=== PATIENT | female | born 1985 | race Caucasian/White ===

== ENCOUNTER 2017-03-10 20:55 | Emergency (ER) | payer SELFPAY ==
[~2017-03-10] VITALS: Ht 134.6 cm; Wt 65.8 kg
[~2017-03-10 20:55] MED LIST: IBUPROFEN; VICODIN; ZOFRAN4 M1 PO
[2017-03-10 21:00] VITALS: BP 120/67
--- NOTE | 2017-03-10 21:40 | NUR ---
Patient ambulated to bed 05.
--- NOTE | 2017-03-10 21:45 | NUR ---
Patient being evaluated by Dr. Murillo at bedside.
--- NOTE | 2017-03-10 21:48 | NUR ---
PT IS 31/F BIB SELF TO ED WITH C/O ABD PAIN, N/V/D X 1 WEEK. PT STATES MED HX OF GALL BLADDER REMOVAL. SKIN IS PINK/WARM/DRY; AAOX4 WITH EVEN AND STEADY GAIT; LUNGS CLEAR BL; HR EVEN AND REGULAR; PT DENIES ANY FEVER, CP, SOB, OR COUGH AT THIS TIME; PATIENT STATES PAIN OF 6/10 AT THIS TIME; VSS; PATIENT POSITIONED FOR COMFORT; HOB ELEVATED; BEDRAILS UP X2; BED DOWN. ER MD MADE AWARE OF PT STATUS.
[2017-03-10] MEDS ORDERED: DICYCLOMINE 20 MG/2 ML VIAL IM ONE (21:55)
[2017-03-10] MEDS ORDERED: ONDANSETRON 4 MG ODT PO ONE (21:55)
[2017-03-10 23:21] VITALS: BP 108/63
--- NOTE | 2017-03-10 23:21 | NUR ---
Patient discharged with v/s stable. Written and verbal after care instructions given and explained. Patient alert, oriented and verbalized understanding of instructions. Ambulatory with steady gait. All questions addressed prior to discharge. ID band removed. Patient advised to follow up with PMD. Rx of ZOFRAN ODT AND BENTYL given. Patient educated on indication of medication including possible reaction and side effects. Opportunity to ask questions provided and answered.
== END 2017-03-10 23:21 | disposition home or self-care (01) ==
LOC: MED 20:55
DX: R11.2 Nausea with vomiting, unspecified (principal); R19.7 Diarrhea, unspecified; Z88.8 Allergy status to other drugs, medicaments and biological substances; Z90.49 Acquired absence of other specified parts of digestive tract
CPT/HCPCS: 36415; 80053; 81001; 81002; 81025; 83690; 87086; 96372; 99284; J0500; S0119

== ENCOUNTER 2018-02-05 01:55 | Emergency (ER) | payer OTHER ==
[~2018-02-05] VITALS: Ht 134.6 cm; Wt 67.6 kg
[~2018-02-05 01:55] MED LIST changes: -ZOFRAN4 M1 PO
[2018-02-05 02:02] VITALS: BP 127/54
[2018-02-05] MEDS ORDERED: LORazepam 1 MG TAB PO ONE (03:00)
[2018-02-05 03:30] LABS: ANION GAP 14.5 (8-16); CARBON DIOXIDE 23.6 mmol/L (21-32); POTASSIUM 3.1 mmol/L (3.5-5.1)
[2018-02-05 03:31] LABS: CREATININE 0.6 mg/dL (0.6-1.3)
[2018-02-05] MEDS ORDERED: POTASSIUM CHLORIDE 10 MEQ TABER PO ONE (03:35)
[2018-02-05] MEDS ORDERED: KETOROLAC 30 MG/ML VIAL IM ONE (04:10)
[2018-02-05 04:25] VITALS: BP 120/60
== END 2018-02-05 04:25 | disposition home or self-care (01) ==
LOC: MED 01:55
DX: R20.2 Paresthesia of skin (principal); Z88.8 Allergy status to other drugs, medicaments and biological substances
CPT/HCPCS: 36415; 80048; 96372; 99283; J1885

== ENCOUNTER 2018-05-10 16:25 | Emergency (ER) | payer OTHER ==
[~2018-05-10] VITALS: Ht 134.6 cm; Wt 72.1 kg
[2018-05-10 16:36] VITALS: BP 126/53
--- NOTE | 2018-05-10 17:02 | NUR ---
PT AMBULATES TO BED 12
--- NOTE | 2018-05-10 17:10 | NUR ---
32y/f bib self with c/p intermittent ruq and rlq abdomen pain radiating to right lower back x 5 days with nausea and diarrhea. Patient denies any vomitting, urinary complaints, or fevers. DENIES N/V/D; SKIN IS PINK/WARM/DRY; AAOX4 WITH EVEN AND STEADY GAIT; PATIENT STATES PAIN OF 6/10 AT THIS TIME; VSS; PATIENT POSITIONED FOR COMFORT; HOB ELEVATED; BEDRAILS UP X1; BED DOWN. ER MD MADE AWARE OF PT STATUS.
[2018-05-10] MEDS ORDERED: ONDANSETRON 4 MG ODT PO ONE (17:35)
[2018-05-10] MEDS ORDERED: KETOROLAC 60 MG/2 ML VIAL IM ONE (17:35)
[2018-05-10 17:50] LABS: APPEARANCE,URINE CLEAR (CLEAR); BILIRUBIN,URINE NEGATIVE (NEGATIVE); BLOOD, URINE TRACE-I (NEGATIVE); COLOR,URINE YELLOW (YELLOW); LEUKOCYTE ESTERASE ,URINE 1+ (NEGATIVE); NITRITE, URINE NEGATIVE (NEGATIVE); PH,URINE 6.5 (5.0-9.0); UGLUCOSE NEGATIVE (NEGATIVE)
--- NOTE | 2018-05-10 17:54 | NUR ---
USLTRA SOUND AT BEDSIDE
[2018-05-10 18:00] LABS: RBC,URINE 0-5 (RARE) /HPF (0-5); WBC,URINE 0-5 (RARE) /HPF (0-5)
[2018-05-10 18:11] LABS: BASOPHILS # (AUTO) 0.1 K/uL (0.00-0.22); BASOPHILS % (AUTO) 1.1 % (0.0-2.0); EOSINOPHILS # (AUTO) 0.2 K/uL (0-0.4); EOSINOPHILS % (AUTO) 3.2 % (0.0-4.0); HEMATOCRIT 44.9 % (36-48); HEMOGLOBIN 14.9 g/dL (12.0-16.0); LYMPHOCYTES # (AUTO) 2.6 K/uL (2.5-16.5); LYMPHOCYTES % (AUTO) 38.5 % (20.5-51.1); MEAN CORPUSCULAR HEMOGLOBIN 30 pg (27-31); MEAN CORPUSCULAR HGB CONC 33 g/dL (33-37); MEAN CORPUSCULAR VOLUME 89.8 fL (80-94); MONOCYTES # (AUTO) 0.6 K/uL (0.8-1.0); NEUTROPHILS # (AUTO) 3.3 K/uL (1.8-7.7); NEUTROPHILS % (AUTO) 48.2 % (42.2-75.2); PLATELET COUNT (AUTO) 295 K/uL (140-450); RED CELL DISTRIBUTION WIDTH 13.3 % (11.6-13.7); WHITE BLOOD COUNT (AUTO) 6.8 K/uL (4.8-10.8)
[2018-05-10 18:44] LABS: ANION GAP 8.9 (8-16); CARBON DIOXIDE 27.5 mmol/L (21-32); CREATININE 0.6 mg/dL (0.6-1.3); POTASSIUM 3.4 mmol/L (3.5-5.1)
[2018-05-10 18:49] LABS: TOTAL BILIRUBIN 0.3 mg/dL (0.0-1.0)
--- NOTE | 2018-05-10 19:20 | NUR ---
Patient discharged with v/s stable. Written and verbal after care instructions given and explained. Patient alert, oriented and verbalized understanding of instructions. Ambulatory with steady gait. All questions addressed prior to discharge. ID band removed. Patient advised to follow up with PMD. Rx of zofran, naprosyn, and cephalexin given. Patient educated on indication of medication including possible reaction and side effects. Opportunity to ask questions provided and answered.
[2018-05-10 19:21] VITALS: BP 125/51
== END 2018-05-10 19:20 | disposition home or self-care (01) ==
LOC: MED 16:25
DX: N39.0 Urinary tract infection, site not specified (principal); R19.7 Diarrhea, unspecified; Z90.49 Acquired absence of other specified parts of digestive tract; Z88.8 Allergy status to other drugs, medicaments and biological substances
CPT/HCPCS: 36415; 76830; 80053; 81001; 81025; 85025; 87086; 93976; 96372; 99285; J1885; Q0092; S0119

== ENCOUNTER 2018-05-28 15:02 | Emergency (ER) | payer OTHER ==
[~2018-05-28] VITALS: Ht 134.6 cm; Wt 72.6 kg
[2018-05-28 15:37] VITALS: BP 120/84
--- NOTE | 2018-05-28 15:45 | NUR ---
33/F BIB FAMILY C/O RLQ abd pain radiating to back with N/V/Dx 1 day, denies dysuria. + chills, denies fever. PT STATED DIARRHEA X 6 EPISODES & VOMIT X 4 EPISODES TODAY. SKIN IS PINK/WARM/DRY; AAOX4 WITH EVEN AND STEADY GAIT; LUNGS CLEAR BL;7/10 AT THIS TIME; VSS; PATIENT POSITIONED FOR COMFORT; HOB ELEVATED; BEDRAILS UP X2; BED DOWN. ER MD MADE AWARE OF PT STATUS.
--- NOTE | 2018-05-28 16:22 | NUR ---
Patient being evaluated by DR RIVERA at bedside.
[2018-05-28] MEDS ORDERED: NACL 0.9% 1,000 ML IV SCH (16:23)
[2018-05-28] MEDS ORDERED: ONDANSETRON 4 MG/2 ML VIAL IVP ONE (16:25)
[2018-05-28] MEDS ORDERED: KETOROLAC 30 MG/ML VIAL IVP ONE (16:25)
[2018-05-28 17:09] LABS: APPEARANCE,URINE CLEAR (CLEAR); BILIRUBIN,URINE 1+ (NEGATIVE); BLOOD, URINE NEGATIVE (NEGATIVE); COLOR,URINE YELLOW (YELLOW); LEUKOCYTE ESTERASE ,URINE NEGATIVE (NEGATIVE); NITRITE, URINE NEGATIVE (NEGATIVE); UGLUCOSE NEGATIVE (NEGATIVE)
[2018-05-28 17:13] LABS: BASOPHILS # (AUTO) 0.1 K/uL (0.00-0.22); BASOPHILS % (AUTO) 0.9 % (0.0-2.0); EOSINOPHILS # (AUTO) 0.1 K/uL (0-0.4); EOSINOPHILS % (AUTO) 1.1 % (0.0-4.0); HEMATOCRIT 44.4 % (36-48); HEMOGLOBIN 14.7 g/dL (12.0-16.0); LYMPHOCYTES # (AUTO) 2.8 K/uL (2.5-16.5); LYMPHOCYTES % (AUTO) 37.4 % (20.5-51.1); MEAN CORPUSCULAR HEMOGLOBIN 30 pg (27-31); MEAN CORPUSCULAR HGB CONC 33 g/dL (33-37); MEAN CORPUSCULAR VOLUME 90.8 fL (80-94); MONOCYTES # (AUTO) 0.7 K/uL (0.8-1.0); MONOCYTES % (AUTO) 9.3 % (1.7-9.3); NEUTROPHILS # (AUTO) 3.8 K/uL (1.8-7.7); NEUTROPHILS % (AUTO) 51.3 % (42.2-75.2); PLATELET COUNT (AUTO) 314 K/uL (140-450); RED BLOOD CELL COUNT(AUTO) 4.89 MIL/uL (4.20-5.40); RED CELL DISTRIBUTION WIDTH 13.4 % (11.6-13.7); WHITE BLOOD COUNT (AUTO) 7.4 K/uL (4.8-10.8)
[2018-05-28 17:14] LABS: ANION GAP 10.3 (8-16); CREATININE 0.7 mg/dL (0.6-1.3); POTASSIUM 3.3 mmol/L (3.5-5.1)
[2018-05-28 17:21] LABS: ALBUMIN 3.9 g/dL (3.4-5.0); TOTAL BILIRUBIN 0.5 mg/dL (0.0-1.0)
[2018-05-28 17:53] VITALS: BP 101/52
--- NOTE | 2018-05-28 17:53 | NUR ---
Patient discharged with v/s stable. Written and verbal after care instructions given and explained. Patient alert, oriented and verbalized understanding of instructions. Ambulatory with steady gait. All questions addressed prior to discharge. ID band removed. Patient advised to follow up with PMD. Rx of MOTRIN, IMODIUM& ZOFRAN given. Patient educated on indication of medication including possible reaction and side effects. Opportunity to ask questions provided and answered.
== END 2018-05-28 17:53 | disposition home or self-care (01) ==
LOC: MED 15:02
DX: R10.31 Right lower quadrant pain (principal); R11.2 Nausea with vomiting, unspecified; R19.7 Diarrhea, unspecified; Z90.49 Acquired absence of other specified parts of digestive tract; Z88.8 Allergy status to other drugs, medicaments and biological substances
CPT/HCPCS: 36415; 74176; 80053; 81003; 81025; 83690; 85025; 96374; 96375; 99285; J1885; J2405

== ENCOUNTER 2018-06-22 13:14 | Emergency (ER) | payer OTHER ==
[~2018-06-22] VITALS: Ht 134.6 cm; Wt 72.6 kg
--- NOTE | 2018-06-22 13:16 | NUR ---
PT AMBULATED TO ER BED 11
[2018-06-22 13:18] VITALS: BP 133/84
--- NOTE | 2018-06-22 13:24 | NUR ---
33YO F TO ER W/C/O RUE PAIN X4-5DAYS. TPT STATES TINGLING IN FINGER WITH SHARP SHOOTING PAIN RADIATING TO R SHOULDER WITH TIGHTNESS IN R FOREARM, HX CARPAL TUNNEL SYNDROME. PT DENIES ANY RECENT TRAUMA OR INJURY. 6/10 PAIN WITH ROM. FULL ROM INTACT. MILD SWELLING NOTED NO REDNESS, WARMTH NOTED. INCREASED PAIN AT NIGHT. NO OTHER MEDICAL C/O AT THIS TIME. ER MD MADE AWARE. WILL CONTINUE TO MONITOR. PT POSITIONED FOR COMFORT.
--- NOTE | 2018-06-22 13:28 | NUR ---
Patient being evaluated by physician at bedside.
--- NOTE | 2018-06-22 13:38 | NUR ---
X-RAY AT BEDSIDE
[2018-06-22] MEDS ORDERED: IBUPROFEN 400 MG TAB PO ONE (13:55)
[2018-06-22 15:39] VITALS: BP 133/84
--- NOTE | 2018-06-22 15:40 | NUR ---
Patient discharged with v/s stable. Written and verbal after care instructions given and explained. Patient alert, oriented and verbalized understanding of instructions. Ambulatory with steady gait. All questions addressed prior to discharge. ID band removed. Patient advised to follow up with PMD. Rx of VOLTAREN GEL AND NAPROSYN given. Patient educated on indication of medication including possible reaction and side effects. Opportunity to ask questions provided and answered.
== END 2018-06-22 15:40 | disposition home or self-care (01) ==
LOC: MED 13:14
DX: M79.631 Pain in right forearm (principal); Z88.8 Allergy status to other drugs, medicaments and biological substances; Z90.49 Acquired absence of other specified parts of digestive tract
CPT/HCPCS: 73090; 93971; 99284; Q0092

== ENCOUNTER 2018-08-16 22:32 | Emergency (ER) | payer OTHER ==
[~2018-08-16] VITALS: Ht 134.6 cm; Wt 72.6 kg
[2018-08-16 22:42] VITALS: BP 137/80
[2018-08-16] MEDS ORDERED: KETOROLAC 30 MG/ML VIAL IM ONE (23:50)
[2018-08-17 03:02] VITALS: BP 135/68
== END 2018-08-17 02:58 | disposition home or self-care (01) ==
LOC: MED 22:32
DX: R51 Headache (principal); R50.9 Fever, unspecified; Z88.8 Allergy status to other drugs, medicaments and biological substances; Z90.49 Acquired absence of other specified parts of digestive tract; Z79.899 Other long term (current) drug therapy
CPT/HCPCS: 70486; 81002; 81025; 96372; 99284; J1885

== ENCOUNTER 2019-04-11 13:11 | Emergency (ER) | payer OTHER ==
[~2019-04-11] VITALS: Ht 134.6 cm; Wt 70.9 kg
[2019-04-11 13:36] VITALS: BP 129/79
--- NOTE | 2019-04-11 13:52 | NUR ---
PT AMB TO BED 8 WITH STEADY GAIT
--- NOTE | 2019-04-11 13:56 | NUR ---
33 Y FEMALE BIB SELF C/O FACIAL PAIN AND SWELLING ALONG WITH SORE THROAT X2 DAYS. PT HAS SWELLING ALONG BOTH SIDES OF NOSE, AND REPORTS PAIN AT 6/10. +REDNESS IN THROAT. +NAUSEA. -VOMITING. NO FEVER. PT STATES SHE THINKS SHE HAS A SINUS INFECTION. PT AA0X4. VSS AT THIS TIME. BED IS DOWN, LOCKED, BED RAIL X 1, ERMD TO SEE PT. MEDHX:DENIES RX:DENIES
--- NOTE | 2019-04-11 14:46 | NUR ---
REX MIRELES AT BEDSIDE
[2019-04-11 15:04] VITALS: BP 135/80
--- NOTE | 2019-04-11 15:04 | NUR ---
Patient discharged with v/s stable. Written and verbal after care instructions given and explained. Patient alert, oriented and verbalized understanding of instructions. Ambulatory with steady gait. All questions addressed prior to discharge. ID band removed. Patient advised to follow up with PMD. Rx of SUDAFED, AMOXICILLIN, PREDNISONE given. Patient educated on indication of medication including possible reaction and side effects. Opportunity to ask questions provided and answered.
== END 2019-04-11 15:04 | disposition home or self-care (01) ==
LOC: MED 13:11
DX: J01.90 Acute sinusitis, unspecified (principal)
CPT/HCPCS: 99283

== ENCOUNTER 2019-08-24 22:05 | Emergency (ER) | payer OTHER ==
[~2019-08-24] VITALS: Ht 134.6 cm; Wt 70.3 kg
--- NOTE | 2019-08-24 22:13 | NUR ---
PT TAKEN TO BED 4
[2019-08-24 22:18] VITALS: BP 135/75
--- NOTE | 2019-08-24 22:30 | NUR ---
PT C/O COUGH, CONGESTION, AND BODY ACHES X2 DAYS. PT STATES CHEST TIGHTNESS W/ COUGH. PT STATES SHE WAS DIAGNOSED WITH BRONCHITIS X2 WEEKS AGO. STATES WHEEZING AT NIGHT. MINOR WHEEZING UPON EXPIRATION. RR EVEN AND UNLABORED. PT APPEARS TO BE IN NO APPARENT DISTRESS. PT RESTING IN BED, CALM AND PLEASANT. VSS AT THIS TIME. MEDHX: DENIES ALLERGIES: DENIES
--- NOTE | 2019-08-24 22:31 | NUR ---
X-Ray at bedside.
--- NOTE | 2019-08-24 23:00 | NUR ---
PT SITTING UPRIGHT IN CHAIR, RR EVEN AND UNLABORED. PT DENIES PAIN. VSS WILL CONTINUE TO MONITOR.
--- NOTE | 2019-08-24 23:20 | NUR ---
Patient discharged with v/s stable. Written and verbal after care instructions given and explained. Patient alert, oriented and verbalized understanding of instructions. Ambulatory with to home. All questions addressed prior to discharge. ID band removed. Patient advised to follow up with PMD. Rx of NORCO, SUDAFED, PREDNISONE, NAPROSYN, AND AUGMENTIN given. Patient educated on indication of medication including possible reaction and side effects. Opportunity to ask questions provided and answered.
[2019-08-24 23:21] VITALS: BP 132/75
== END 2019-08-24 23:20 | disposition home or self-care (01) ==
LOC: MED 22:05
DX: J01.90 Acute sinusitis, unspecified (principal); Z90.49 Acquired absence of other specified parts of digestive tract; Z79.1 Long term (current) use of non-steroidal anti-inflammatories (NSAID); Z79.891 Long term (current) use of opiate analgesic; Z88.8 Allergy status to other drugs, medicaments and biological substances
CPT/HCPCS: 71045; 99283

== ENCOUNTER 2019-10-28 14:02 | Emergency (ER) | payer OTHER ==
[~2019-10-28] VITALS: Ht 134.6 cm; Wt 68.0 kg
[2019-10-28 14:38] VITALS: BP 119/68
--- NOTE | 2019-10-28 14:42 | NUR ---
PT ambulated to lobby at this time, VSS.
--- NOTE | 2019-10-28 17:08 | NUR ---
34/F TO ED WITH C/O PERSISTANT COUGH OVER LAST 3 MOS. PT REPORTS THAT SHE HAS HAD BRONCHITIS FOR THE LAST 3 MOS AND FEELS LIKE IT IS GETTING WORSE. LUNG SOUND CLEAR BILATERALLY. NO DISTRESS. IN BED FOR EVAL.
[2019-10-28] MEDS ORDERED: KETOROLAC 60 MG/2 ML VIAL IM ONE (18:45)
--- NOTE | 2019-10-28 18:50 | NUR ---
XRAY AT BEDSIDE.
[2019-10-28 19:21] VITALS: BP 119/68
--- NOTE | 2019-10-28 19:21 | NUR ---
Patient discharged with v/s stable. Written and verbal after care instructions given and explained. Patient alert, oriented and verbalized understanding of instructions. Ambulatory with steady gait. All questions addressed prior to discharge. ID band removed. Patient advised to follow up with PMD. Rx of ALBUTEROL; SUDAFED; AZITHROMYCIN; PROMETHAZINE; MOTRIN given. Patient educated on indication of medication including possible reaction and side effects. Opportunity to ask questions provided and answered.
== END 2019-10-28 19:21 | disposition home or self-care (01) ==
LOC: MED 14:02
DX: R05 Cough (principal); Z79.1 Long term (current) use of non-steroidal anti-inflammatories (NSAID); Z79.891 Long term (current) use of opiate analgesic; Z88.8 Allergy status to other drugs, medicaments and biological substances
CPT/HCPCS: 71045; 96372; 99283; J1885; Q0092

== ENCOUNTER 2020-06-05 00:25 | Emergency (ER) | payer OTHER ==
[~2020-06-05] VITALS: Ht 134.6 cm; Wt 69.9 kg
[2020-06-05 00:35] VITALS: BP 133/85
[2020-06-05 01:24] LABS: BASOPHILS # (AUTO) 0.1 K/uL (0.00-0.22); EOSINOPHILS # (AUTO) 0.3 K/uL (0-0.4); EOSINOPHILS % (AUTO) 4.2 % (0.0-4.0); HEMATOCRIT 41.9 % (36-48); HEMOGLOBIN 14.1 g/dL (12.0-16.0); LYMPHOCYTES # (AUTO) 2.9 K/uL (2.5-16.5); LYMPHOCYTES % (AUTO) 36.7 % (20.5-51.1); MEAN CORPUSCULAR HEMOGLOBIN 31 pg (27-31); MEAN CORPUSCULAR HGB CONC 34 g/dL (33-37); MEAN CORPUSCULAR VOLUME 91.7 fL (80-94); MONOCYTES # (AUTO) 0.6 K/uL (0.8-1.0); MONOCYTES % (AUTO) 7.2 % (1.7-9.3); NEUTROPHILS % (AUTO) 50.9 % (42.2-75.2); PLATELET COUNT (AUTO) 292 K/uL (140-450); RED BLOOD CELL COUNT(AUTO) 4.57 MIL/uL (4.20-5.40); RED CELL DISTRIBUTION WIDTH 12.8 % (11.6-13.7); WHITE BLOOD COUNT (AUTO) 7.9 K/uL (4.8-10.8)
[2020-06-05 01:41] LABS: ALBUMIN 3.9 g/dL (3.4-5.0); CARBON DIOXIDE 27.5 mmol/L (21-32); CREATININE 0.6 mg/dL (0.6-1.3); POTASSIUM 3.5 mmol/L (3.5-5.1); TOTAL BILIRUBIN 0.3 mg/dL (0.0-1.0)
[2020-06-05 01:50] VITALS: BP 135/85
== END 2020-06-05 02:58 | disposition home or self-care (01) ==
LOC: MED 00:25
DX: R19.7 Diarrhea, unspecified (principal); R10.9 Unspecified abdominal pain; Z90.49 Acquired absence of other specified parts of digestive tract; Z88.8 Allergy status to other drugs, medicaments and biological substances
CPT/HCPCS: 36415; 80053; 81025; 85025; 99284